=== PATIENT | male | born 1990 | race African-American/Black ===

== ENCOUNTER 2020-06-06 21:00 | Emergency (ER) | payer MEDICAID ==
[2020-06-06] MEDS ORDERED: DIPH/PERTUSS(ACELL)/TETANUS VAC/PF 0.5 ML SYR (>=10YO) IM ONE (23:01)
--- NOTE | 2020-06-06 23:07 | ER Document Report ---
ED Medical Screen (RME) - General Chief Complaint: Foreign Body Stated Complaint: FINGER INJURY Time Seen by Provider: 06/06/20 22:57 Primary Care Provider: JACE WAGNER MD [Primary Care Provider] - Follow up as needed Mode of Arrival: Ambulatory Information source: Patient Notes: 29-year-old male presented to ED for a fishhook in the right middle finger. He states he was trying to catch minutes with the fishhook went into to the water when somehow he got it in his finger. It is embedded into the finger. He is alert oriented respirations regular nonlabored speaking in full sentences. Patient will get a tetanus immunization and he will need antibiotics and the fishhook removed. I have greeted and performed a rapid initial assessment of this patient. A comprehensive ED assessment and evaluation of the patient, analysis of test results and completion of medical decision making process will be conducted by an additional ED providers. - Related Data Allergies/Adverse Reactions: No Known Allergies Allergy (Unverified 06/06/20 22:48) Physical Exam - Vital signs Vitals: Temp Pulse Resp BP Pulse Ox 99.4 F 77 20 133/88 H 100 06/06/20 21:38 06/06/20 21:38 06/06/20 21:38 06/06/20 21:38 06/06/20 21:38 Course - Vital Signs Vital signs: Temp Pulse Resp BP Pulse Ox 99.4 F 77 20 133/88 H 100 06/06/20 21:38 06/06/20 21:38 06/06/20 21:38 06/06/20 21:38 06/06/20 21:38 Doctor's Discharge - Discharge Referrals: JACE WAGNER MD [Primary Care Provider] - Follow up as needed
--- NOTE | 2020-06-06 23:44 | RADIOLOGY REPORT (SQ) ---
EXAM DESCRIPTION: XR right middle FINGER, 3 views COMPLETED DATE/TME: 06/06/2020 23:01 CLINICAL HISTORY: 29 years, Male, fish hook in middle finger COMPARISON: None. NUMBER OF VIEWS: TECHNIQUE: LIMITATIONS: None. FINDINGS: There is a metallic fishhook embedded in the ventral aspect of the distal middle finger. Approximately 1.3 cm of the fishhook is within the middle finger. No fracture or dislocation. Mineralization of bone appears normal. IMPRESSION: [place] embedded within the ventral aspect of the distal middle finger. copyright 2010 [employer]- All Rights Reserved
--- NOTE | 2020-06-07 00:05 | ER Document Report ---
ED Foreign Body - General Chief Complaint: Foreign Body Stated Complaint: FINGER INJURY Time Seen by Provider: 06/06/20 22:57 Primary Care Provider: JACE WAGNER MD [EMERITUS] - Follow up in 3-5 days Mode of Arrival: Ambulatory Information source: Patient Notes: 29-year-old male presented to ED for fishhook to the end of the middle finger. He was trying to catch some mid nose with the fishhook when he pulled the hook out of the water somehow he got it stuck into his fingers. He states he is not sure how he did it but it is embedded into the right middle finger. He is alert oriented respirations regular nonlabored speaking in full sentences. He does need to get his tetanus immunization. The x-ray shows that it is in the fleshy part of the finger. We will numb his finger and remove the fishhook and start him on Cipro. - HPI Location of foreign body: Other - Right middle finger Onset: Just prior to arrival Onset/Duration: Sudden Quality of pain: Achy Severity: Moderate Pain Level: 3 Context: Injury, Other - Accidental Associated symptoms: Other Exacerbated by: Movement - Lilly in the end of the finger Relieved by: Denies Similar symptoms previously: Yes Recently seen / treated by doctor: No - Related Data Allergies/Adverse Reactions: No Known Allergies Allergy (Unverified 06/06/20 22:48) Past Medical History - General Information source: Patient - Social History Smoking Status: Never Smoker Frequency of alcohol use: None Drug Abuse: None Family History: Reviewed & Not Pertinent Patient has homicidal ideation: No - Past Medical History Cardiac Medical History: Reports: None Pulmonary Medical History: Reports: None EENT Medical History: Reports: None Neurological Medical History: Reports: None Endocrine Medical History: Reports: None Renal/ Medical History: Reports: None Malignancy Medical History: Reports None GI Medical History: Reports: None Musculoskeletal Medical History: Reports None Skin Medical History: Reports None Psychiatric Medical History: Reports: None Traumatic Medical History: Reports: None Infectious Medical History: Reports: None Surgical Hx: Negative Past Surgical History: Reports: None - Immunizations Immunizations up to date: Yes Hx Diphtheria, Pertussis, Tetanus Vaccination: Yes - 06/07/2020 Review of Systems - Review of Systems Constitutional: No symptoms reported EENT: No symptoms reported Cardiovascular: No symptoms reported Respiratory: No symptoms reported Gastrointestinal: No symptoms reported Genitourinary: No symptoms reported Male Genitourinary: No symptoms reported Musculoskeletal: No symptoms reported Skin: Other - Lilly in the end of the right middle finger Hematologic/Lymphatic: No symptoms reported Neurological/Psychological: No symptoms reported -: Yes All other systems reviewed and negative Physical Exam - Vital signs Vitals: Temp Pulse Resp BP Pulse Ox 99.4 F 77 20 133/88 H 100 06/06/20 21:38 06/06/20 21:38 06/06/20 21:38 06/06/20 21:38 06/06/20 21:38 Interpretation: Normal - General General appearance: Appears well, Alert - HEENT Head: Normocephalic, Atraumatic Eyes: Normal Pupils: PERRL - Respiratory Respiratory status: No respiratory distress Chest status: Nontender Breath sounds: Normal Chest palpation: Normal - Cardiovascular Rhythm: Regular Heart sounds: Normal auscultation Murmur: No - Abdominal Inspection: Normal Distension: No distension Bowel sounds: Normal Tenderness: Nontender Organomegaly: No organomegaly - Back Back: Normal, Nontender - Extremities General upper extremity: Normal inspection, Nontender, Normal color, Normal ROM, Normal temperature General lower extremity: Normal inspection, Nontender, Normal color, Normal ROM, Normal temperature, Normal weight bearing. No: Dejuan's sign - Neurological Neuro grossly intact: Yes Cognition: Normal Orientation: AAOx4 [place] Coma Scale Eye Opening: Spontaneous Rohith Coma Scale Verbal: Oriented [place] Coma Scale Motor: Obeys Commands [place] Coma Scale Total: 15 Speech: Normal Motor strength normal: LUE, RUE, LLE, RLE Sensory: Normal - Psychological Associated symptoms: Normal affect, Normal mood - Skin Skin Temperature: Warm Skin Moisture: Dry Skin Color: Normal Location of irregularity: Extremities - Patient follow-up in the end of the right middle finger Character of irregularity: Other - Foreign body in finger Course - Re-evaluation Re-evalutation: 06/07/20 01:31 Structures were discussed with patient and his aunt. Patient and his aunt both verbalized understanding and agreement with treatment plan and patient was discharged home. - Vital Signs Vital signs: Temp Pulse Resp BP Pulse Ox 99.4 F 77 20 133/88 H 100 06/06/20 21:38 06/06/20 21:38 06/06/20 21:38 06/06/20 21:38 06/06/20 21:38 - Diagnostic Test Radiology reviewed: Image reviewed, Reports reviewed Procedures - Additional Procedures Foreign body removal Time performed: 00:28 Notes: 06/07/20 00:28 Right middle finger was cleaned well with surgical scrub. The area was anesthetized with 1% lidocaine 3 cc. The area was cleaned again to include the fishhook. Lilly was advanced to pierced the skin and then the murtaza was removed with metal clippers. The hook was then removed and the track was irrigated with saline. The finger was then irrigated with 300 cc of saline. Discharge - Discharge Clinical Impression: Foreign body of right middle finger Condition: Stable Disposition: HOME, SELF-CARE Additional Instructions: You were seen today for fishhook in your right middle finger. Lilly has been removed. Epsom Salt Soaks Soak the wound area in a container of warm epsom salt water. If you can't get the wound area into a bucket or armstrong, use a folded towel soaked in the epsom salt solution and apply to the area. Use clean hot tap water (about the temperature of a very warm bath), mixing in about one (1) teaspoon for every pint of water. Two gallon --> 16 teaspoons Epsom Salts One gallon --> 8 teaspoons Epsom Salts Two quarts --> 4 teaspoons Epsom Salts One quart --> 2 teaspoons Epsom Salts Soak the wound for about 20 minutes while gently moving it around in the water. Repeat this four (4) times a day. Ciprofloxacin You have been given an antibacterial agent, ciprofloxacin (Cipro). This medicine is not related to the penicillins, sulfas, cephalosporins, or tetracyclines. It is often given to patients who are allergic to these drugs. It has been chosen for you either because other drugs are not appropriate, or because of the nature of your problem. Cipro should not be taken with antacids, as these can decrease its effectiveness. It can be taken without regard to meals. CIPRO SHOULD NOT BE TAKEN BY CHILDREN, NURSING WOMEN, OR WOMEN. Although Cipro is usually well-tolerated, common side effects can include nausea and diarrhea. Contact your doctor if you experience any unusual symptoms while on this medication, such as joint pain or swelling, shortness of breath, wheezing, faintness, or hives. Tetanus Immunization Given You have been given an immunization against tetanus. Please record this in your records. In general, a booster is needed only once every 10 years. The tetanus shot protects against tetanus or "lockjaw," which is a complication of certain wound infections (the tetanus shot cannot protect against the actual infection). The immunization site may become warm and red due to local reaction. If this occurs, apply warm compresses and take aspirin or ibuprofen to reduce inflammation and discomfort. Return for evaluation if the reaction becomes severe. FOLLOW-UP CARE: If you have been referred to a physician for follow-up care, call the physicians office for an appointment as you were instructed or within the next two days. If you experience worsening or a significant change in your symptoms, notify the physician immediately or return to the Emergency Department at any time for re-evaluation. Prescriptions: Ciprofloxacin HCl [Cipro 500 mg Tablet] 500 mg PO BID #10 tablet Forms: Elevated Blood Pressure Referrals: JACE WAGNER MD [EMERITUS] - Follow up in 3-5 days
[2020-06-07] MEDS ORDERED: CIPROFLOXACIN HCL 500 MG TABLET PO ONE (00:23)
[2020-06-07 01:46] VITALS: BP 131/79
== END 2020-06-07 01:18 | disposition home or self-care (01) ==
LOC: ER 21:00
DX: S60.452A Superficial foreign body of right middle finger, initial encounter (principal); W22.8XXA Striking against or struck by other objects, initial encounter; Y93.89 Activity, other specified
CPT/HCPCS: 99283; 90471; 73140; 90715; J3490